=== PATIENT | male | born 1945 | race Two or more races ===

== ENCOUNTER 2017-11-28 19:47 | Inpatient (IN) | payer BC, OTHER ==
[~2017-11-28] VITALS: Ht 180.3 cm; Wt 73.5 kg
[2017-11-28] MEDS ORDERED: PHEN97.22 PO (20:55)
[2017-11-28] MEDS ORDERED: PHEN100C4 PO (20:55)
[2017-11-28] MEDS ORDERED: MAG HYDROX/AL HYDROX/SIMETH 30 ML LIQUID UDC PO PRN (22:30)
[2017-11-28] MEDS ORDERED: LORAZEPAM 0.5 MG TABLET PO PRN (22:30)
[2017-11-28] MEDS ORDERED: TEMAZEPAM 7.5 MG CAPSULE PO PRN (22:30)
[2017-11-28] MEDS ORDERED: ACETAMINOPHEN 325 MG TABLET PO PRN (22:30)
[2017-11-28] MEDS ORDERED: MAGNESIUM HYDROXIDE 30 ML LIQUID UDC PO PRN (22:30)
[2017-11-28] MEDS ORDERED: TRAM50TA2 PO (23:19)
[2017-11-28] MEDS ORDERED: TEMA7.5C PO (23:19)
[2017-11-28] MEDS ORDERED: ONDA4TAB5 SL (23:19)
[2017-11-29] MEDS: PHENOBARBITAL 32.4 MG TABLET PO SCH ×2 (00:22→20:03)
[2017-11-29 01:01] VITALS: BP 149/77
[2017-11-29 07:30] VITALS: BP 117/72
[2017-11-29 07:43] LABS: BASOPHILS % (AUTO) 0.5 % (0.0-2.0); EOSINOPHILS # (AUTO) 0.2 K/uL (0.0-0.7); HEMOGLOBIN 12.9 g/dL (12.5-16.3); LYMPHOCYTES # (AUTO) 2.2 K/uL (20.0-40.0); LYMPHOCYTES % (AUTO) 23.5 % (20.5-51.5); MEAN CORPUSCULAR HEMOGLOBIN 29.8 uug (23.8-33.4); MEAN CORPUSCULAR HGB CONC 34 g/dL (32.5-36.3); MEAN CORPUSCULAR VOLUME 87.9 fL (73.0-96.2); MONOCYTES # (AUTO) 1.2 K/uL (2.0-10.0); MONOCYTES % (AUTO) 12.2 % (0.0-11.0); NEUTROPHILS # (AUTO) 5.8 K/uL (1.8-8.9); NEUTROPHILS % (AUTO) 61.8 % (38.5-71.5); PLATELET COUNT (AUTO) 423 K/uL (152-348); RED BLOOD CELL COUNT(AUTO) 4.32 MIL/uL (4.06-5.63); WHITE BLOOD COUNT (AUTO) 9.4 K/uL (3.6-10.2)
[2017-11-29 08:19] LABS: ALANINE AMINOTRANSFERASE 16 U/L (16-63); ALKALINE PHOSPHATASE 116 U/L (50-136); ASPARTATE AMINOTRANSFERASE 11 U/L (15-37); BILIRUBIN,TOTAL 0.2 mg/dL (0.2-1.0); CARBON DIOXIDE 25 mmol/L (21-32); CHLORIDE 96 mmol/L (98-107); CHOLESTEROL 215 mg/dL (<200); CREATININE 0.6 mg/dL (0.6-1.3); GLUCOSE 86 mg/dL (74-106); GLUCOSE FASTING 86 mg/dL (70-115); HDL CHOLESTEROL 93 mg/dL (40-60); MAGNESIUM 2.2 mg/dL (1.8-2.4); PHOSPHOROUS 3.8 mg/dL (2.5-4.9); POTASSIUM 4.8 mmol/L (3.5-5.1); TOTAL PROTEIN, SERUM 7.2 g/dL (6.4-8.2); TRIGLYCERIDES 84 MG/DL (30-150); UREA NITROGEN, BLOOD 11 mg/dL (7-18)
[2017-11-29] MEDS: PHENYTOIN SODIUM EXTENDED 100 MG CAPSULE.SA PO SCH (09:34)
[2017-11-29] MEDS: SERTRALINE HCL 50 MG TABLET PO SCH (13:58)
[2017-11-29 15:10] VITALS: BP 122/79
[2017-11-29 19:59] VITALS: BP 144/80
[2017-11-29] MEDS ORDERED: QUETIAPINE FUMARATE 25 MG TABLET PO SCH (21:00)
[2017-11-30 07:30] VITALS: BP 120/68
[2017-11-30 07:39] LABS: CARBON DIOXIDE 27 mmol/L (21-32); CHLORIDE 93 mmol/L (98-107); CREATININE 0.6 mg/dL (0.6-1.3); GLUCOSE 85 mg/dL (74-106); MAGNESIUM 2.3 mg/dL (1.8-2.4); PHOSPHOROUS 3.5 mg/dL (2.5-4.9); POTASSIUM 4.8 mmol/L (3.5-5.1); UREA NITROGEN, BLOOD 10 mg/dL (7-18)
[2017-11-30] MEDS: CYANOCOBALAMIN 1000 MCG/ML VIAL IM SCH (08:04)
[2017-11-30] MEDS: PHENYTOIN SODIUM EXTENDED 100 MG CAPSULE.SA PO SCH (08:04)
[2017-11-30 08:15] LABS: URIC ACID 4.8 mg/dL (3.5-7.2)
[2017-11-30] MEDS: SERTRALINE HCL 50 MG TABLET PO SCH (12:04)
[2017-11-30 15:05] VITALS: BP 120/67
[2017-11-30 17:42] LABS: *BILIRUBIN,URIN NEGATIVE (NEGATIVE); *BLOOD, URINE 1+ (NEGATIVE); *CLARITY,URINE CLEAR (CLEAR); *COLOR,URINE YELLOW (YELLOW); *KETONES,URINE NEGATIVE (NEGATIVE); *PROTEIN,URINE NEGATIVE (NEGATIVE); *UROBILINOGEN,URINE 0.2 E.U./dl (NORMAL); LEUKOCYTE ESTERASE ,URINE NEGATIVE (NEGATIVE); NITRITE, URINE NEGATIVE (NEGATIVE); UGLUCOSE NEGATIVE (NEGATIVE)
[2017-11-30 18:48] LABS: SQUAMOUS EPITHELIAL CELL,UR FEW /HPF (NONE SEEN); WBC,URINE 0-3 /HPF (0-3)
[2017-11-30 18:49] LABS: MUCUS,URINE FEW /LPF (0-FEW)
[2017-11-30 20:00] VITALS: BP 144/70
[2017-11-30] MEDS: PHENOBARBITAL 32.4 MG TABLET PO SCH (21:13)
[2017-11-30] MEDS: QUETIAPINE FUMARATE 25 MG TABLET PO SCH (21:14)
[2017-11-30] MEDS: ATORVASTATIN 20 MG TABLET PO SCH (21:31)
[2017-12-01 07:44] VITALS: BP 99/66
[2017-12-01 09:09] LABS: BILIRUBIN,TOTAL 0.3 mg/dL (0.2-1.0); CREATININE 0.7 mg/dL (0.6-1.3); POTASSIUM 5.6 mmol/L (3.5-5.1); TOTAL PROTEIN, SERUM 6.8 g/dL (6.4-8.2)
[2017-12-01] MEDS: CYANOCOBALAMIN 1000 MCG/ML VIAL IM SCH (09:24)
[2017-12-01] MEDS: PHENYTOIN SODIUM EXTENDED 100 MG CAPSULE.SA PO SCH (10:53)
[2017-12-01] MEDS ORDERED: SODIUM POLYSTYRENE SULFONATE 15 G/60 ML LIQUID UDC PO ONE (11:45)
[2017-12-01 15:07] VITALS: BP 116/71
[2017-12-01 20:00] VITALS: BP 159/69
[2017-12-01] MEDS: PHENOBARBITAL 32.4 MG TABLET PO SCH (20:22)
[2017-12-01] MEDS: ATORVASTATIN 20 MG TABLET PO SCH (20:23)
[2017-12-01] MEDS: QUETIAPINE FUMARATE 25 MG TABLET PO SCH (20:23)
[2017-12-01] MEDS ORDERED: PHENYTOIN SODIUM EXTENDED 100 MG CAPSULE.SA PO SCH (21:00)
[2017-12-02 07:30] VITALS: BP 128/65
[2017-12-02 08:10] LABS: CREATININE 0.7 mg/dL (0.6-1.3); POTASSIUM 4.4 mmol/L (3.5-5.1)
[2017-12-02] MEDS: CYANOCOBALAMIN 1000 MCG/ML VIAL IM SCH (08:51)
[2017-12-02] MEDS: PHENYTOIN SODIUM EXTENDED 100 MG CAPSULE.SA PO SCH (10:58)
== END 2017-12-02 14:00 | disposition home health service (06) | DRG 885 ==
LOC: ER 19:49 → GPS 22:21
PROVIDERS: ADMIT Psychiatry & Neurology Psychosomatic Medicine; ATTEND Internal Medicine
PROC: 0HBRXZZ Excision of Toe Nail, External Approach (ICD-10-PCS; principal; 2017-12-01)
DX: F23 Brief psychotic disorder (principal); F01.50 Vascular dementia, unspecified severity, without behavioral disturbance, psychotic disturbance, mood disturbance, and anxiety; E87.5 Hyperkalemia; E22.2 Syndrome of inappropriate secretion of antidiuretic hormone; G93.89 Other specified disorders of brain; E83.51 Hypocalcemia; E24.9 Cushing's syndrome, unspecified; B35.1 Tinea unguium; I69.951 Hemiplegia and hemiparesis following unspecified cerebrovascular disease affecting right dominant side; I69.198 Other sequelae of nontraumatic intracerebral hemorrhage; I69.910 Attention and concentration deficit following unspecified cerebrovascular disease; F10.21 Alcohol dependence, in remission; T42.0X1D Poisoning by hydantoin derivatives, accidental (unintentional), subsequent encounter; I69.918 Other symptoms and signs involving cognitive functions following unspecified cerebrovascular disease; F41.9 Anxiety disorder, unspecified; E78.5 Hyperlipidemia, unspecified; E53.8 Deficiency of other specified B group vitamins; E03.9 Hypothyroidism, unspecified; Z91.14 Patient's other noncompliance with medication regimen; Z91.81 History of falling; D47.3 Essential (hemorrhagic) thrombocythemia; G40.909 Epilepsy, unspecified, not intractable, without status epilepticus; F43.10 Post-traumatic stress disorder, unspecified; M21.371 Foot drop, right foot; L84 Corns and callosities; M21.612 Bunion of left foot
CPT/HCPCS: 36415; 82533; 83735; 84100; 84300; 84443; 84480; 84550; 85025; 87086; 93005; A4663; J3420